=== PATIENT | female | born 1980 | race Caucasian/White ===

== ENCOUNTER 2017-03-21 01:08 | Outpatient (CLI) | payer OTHER ==
--- NOTE | 2017-03-21 14:54 | ULT ---
ULTRASOUND OB COMPLETE STANDARD: HISTORY: Size and dates. Anatomy. COMPARISON: None. TECHNIQUE: Real-time, anand scale, and color evaluation of the pelvis is performed transabdominal approach. FINDINGS: A single viable intrauterine with average ultrasound age 26 weeks 6 days, estimated date of delivery 06/21/17. Estimated weight is 2 pounds 3 ounces, 57th percentile. Biparietal diamete r 26 weeks 5 days, 6.63 cm. Head circumference 26 weeks 6 days, 24.71 cm. Abdominal circumference 2 6 weeks 5 days, 22.27 cm. Femur length 27 weeks 1 day, 5.06 cm. Amniotic fluid index is 12.2 cm. heart rate documented at 139 b.p.m. position is vertex and the placenta is posterior. Visualized spine, sacrum, bladder, diaphragm, kidneys, ventricles, c erebellum, 3-vessel cord, nose, lips, posterior fossa, cord insertion, stomach, and 4-chamber heart a re all normal. IMPRESSION: Normal anatomy scan of a single viable intrauterine with average ultrasound age 26 weeks 6 days, estimated date of delivery of 06/21/17. This is concordant with the clinical age. POS: [facility]
== END 2017-03-21 01:09 | disposition home or self-care (01) ==
LOC: SCSULT 01:08
PROVIDERS: ATTEND Family Medicine
DX: Z34.82 Encounter for supervision of other normal pregnancy, second trimester (principal)
CPT/HCPCS: 76805

== ENCOUNTER 2017-06-21 19:36 | Day surgery (SDC) | payer OTHER ==
[2017-06-21 20:25] VITALS: BMI 21.7
--- NOTE | 2017-06-22 04:31 | PRG ---
DATE OF SERVICE: 06/21/2017 PRIMARY ORTHOTICS ASSISTANT: Jie Briceño MD CHIEF COMPLAINT: Abdominal pain. HISTORY OF PRESENT ILLNESS: The patient is a 36-year-old female with an intrauterine at 39 weeks and 5 days who presents to Labor and Delivery with abdominal pains, which she reports as uterine contractions. She reports that she was seen in the clinic today with Dr. Briceño around noon and had a cervical exam of 3 cm dilation. She denies any leakage of fluid, any vaginal bleeding, an y recent illness, fever or fall, headache, chest pain, shortness of breath, nausea or vomiting, it rae s occurred a few times today. She denies any new rashes, any muscle weakness. PAST MEDICAL HISTORY: Negative. PAST SURGICAL HISTORY: Negative. SOCIAL HISTORY: Denies drug, alcohol, or tobacco use. ALLERGIES: PENICILLIN. MEDICATIONS: vitamins. OBSTETRIC LABORATORY: Her Glucola was 64, HIV negative, group B strep negative. Blood type A negati ve, RPR nonreactive, HIV nonreactive. She is rubella immune. Hepatitis B surface antigen is negativ e. REVIEW OF SYSTEMS: Per HPI. PHYSICAL EXAMINATION: VITAL SIGNS: Blood pressure was 123/75, heart rate is 67, respiratory rate 16, temperature 98.1. GENERAL: She appears to be in no acute distress. She is alert and oriented, and cooperative and ple asant to interact with. HEAD: Normocephalic, atraumatic. LUNGS: Clear to auscultation bilaterally. HEART: Regular rate and rhythm. ABDOMEN: Soft and nontender between contractions. EXTREMITIES: Nontender, nonedematous. She does have some tenderness in SI joint region to palpation . CERVICAL EXAM: 3, 80 -3 station where she unchanged after 4-1/2 hours. heart tracing performed for threatened labor. Baseline is noted to be in the one teens with mo derate long-term variability, positive accelerations, no decelerations. The tocometer showing irrita bility, no real consisting contraction pattern. ASSESSMENT AND PLAN: The patient is a 36-year-old female with an intrauterine at 39 weeks and 5 days with term contractions, but no evidence of labor. Her cervical exam has been unchan ged over about 4-1/2 hours. Fetus has a category 1 tracing, she is GBS negative. The patient is evens ng discharged to home were given term precautions. The [place].
== END 2017-06-22 01:15 | disposition home or self-care (01) ==
LOC: SDC 19:36 → L&D/OP 19:36
PROVIDERS: ATTEND Family Medicine
DX: O47.1 False labor at or after 37 completed weeks of gestation (principal); Z3A.39 39 weeks gestation of pregnancy; Z79.899 Other long term (current) drug therapy; Z88.0 Allergy status to penicillin
CPT/HCPCS: 96372; 99283; J0595

== ENCOUNTER 2017-06-22 06:01 | Inpatient (IN) | payer OTHER ==
[2017-06-22 06:37] VITALS: BMI 21.7
[2017-06-22] MEDS ORDERED: Lactated Ringer's 1,000 ML IV SCH ×2 (06:45)
[2017-06-22] MEDS ORDERED: Methylergonovine 0.2 MG/ML VIAL IM PRN (06:45)
[2017-06-22] MEDS ORDERED: Lidocaine 1% (PF) 30 ML VIAL SC PRN (06:45)
[2017-06-22] MEDS ORDERED: Ondansetron HCl/PF 4 MG/2 ML Vial IVP PRN ×2 (06:45→11:35)
[2017-06-22] MEDS ORDERED: Acetaminophen/Codeine 30-300mg Tablet PO PRN ×3 (06:45→11:35)
[2017-06-22] MEDS ORDERED: Ibuprofen 800 MG TAB PO PRN (06:45)
[2017-06-22] MEDS ORDERED: Lidocaine 1% (PF) 30 ML VIAL ONE (06:51)
[2017-06-22] MEDS: LR / Pitocin 40 units/1000 ml 1,000 ML IV PRN ×2 (07:00→09:00)
[2017-06-22 07:07] LABS: Hemoglobin 11.1 g/dL (12.0-16.0); Mean Corpuscular HGB CONC 33.2 g/dL (32.0-36.0); Mean Corpuscular Hemoglobin 28.2 pg (27.0-31.0); Mean Corpuscular Volume 84.8 fl (81.0-99.0); Mean Platelet Volume 7.4 fL (7.4-10.4); Platelet Count 255 thou/uL (130-400); RBC Distribution Width 12.6 % (11.5-14.5); Red Blood Cell (RBC) Count 3.94 mill/uL (4.20-5.40)
[2017-06-22 07:58] LABS: Syphilis Antibody Nonreactive (Nonreactive); Syphilis Antibody Index 0.02 S/CO (<1.00 Non-Reactive)
[2017-06-22 07:59] LABS: Hep B Surf Ag Non-Reactive S/CO (NonReactive)
[2017-06-22] MEDS ORDERED: Milk Of Magnesia 30 ML UDCUP PO PRN (11:35)
[2017-06-22] MEDS ORDERED: Adacel (T-DAP) 0.5 ML VIAL IM ONE (11:35)
[2017-06-22] MEDS ORDERED: diphenhydrAMINE 25 MG CAP PO PRN (11:35)
[2017-06-22] MEDS ORDERED: Bisacodyl 10 MG SUPP PR PRN (11:35)
[2017-06-22] MEDS ORDERED: Benzocaine/Menthol 20-0.5% 60 ML CAN TOP PRN (11:35)
[2017-06-22] MEDS ORDERED: Preparation H Ointment 28 GM TUBE PR PRN (11:35)
[2017-06-22] MEDS ORDERED: Lanolin Ointment 7 GM TUBE TOP PRN (11:35)
[2017-06-22] MEDS ORDERED: LR / Pitocin 40 units/1000 ml 1,000 ML IV SCH (11:35)
[2017-06-22] MEDS ORDERED: HYDROcodone/Acetaminophen 5/325 mg Tablet PO PRN (11:35)
[2017-06-22] MEDS: Docusate Calcium (SURFAK) 240 MG CAP PO SCH ×2 (14:38→22:18)
[2017-06-22] MEDS: Prenatal Vitamin 1 TAB PO SCH (14:38)
[2017-06-22] MEDS: Ibuprofen 800 MG TAB PO SCH ×2 (14:43→22:18)
[2017-06-22] MEDS: Ferrous Sulfate 325 MG TAB PO SCH (17:33)
[2017-06-23] MEDS ORDERED: Acetaminophen/Codeine 30-300mg Tablet PO PRN (03:23)
[2017-06-23] MEDS: Ibuprofen 800 MG TAB PO SCH (06:25)
[2017-06-23 08:08] VITALS: BP 130/76; TEMP 98.3
[2017-06-23] MEDS: Ferrous Sulfate 325 MG TAB PO SCH (08:11)
[2017-06-23] MEDS: Prenatal Vitamin 1 TAB PO SCH (08:45)
[2017-06-23] MEDS: Docusate Calcium (SURFAK) 240 MG CAP PO SCH (08:45)
== END 2017-06-23 10:50 | disposition home or self-care (01) | DRG 775 ==
LOC: L&D/OP 06:01 → L&D 06:47 → 3SW 14:02
PROVIDERS: ADMIT Family Medicine; ATTEND Family Medicine
PROC: 10E0XZZ Delivery of Products of Conception, External Approach (ICD-10-PCS; principal; 2017-06-22)
DX: O69.81X0 Labor and delivery complicated by cord around neck, without compression, not applicable or unspecified (principal); O76 Abnormality in fetal heart rate and rhythm complicating labor and delivery; Z37.0 Single live birth; Z3A.39 39 weeks gestation of pregnancy
CPT/HCPCS: 85027; 86780; 87340; 90715; 96372; 99283; 99285; J0595; J2001